=== PATIENT | male | born 1970 | race Two or more races ===

== ENCOUNTER 2018-08-24 00:21 | Emergency (ER) | payer SELFPAY ==
[~2018-08-24] VITALS: Ht 172.7 cm; Wt 68.9 kg
--- NOTE | 2018-08-24 00:40 | NUR ---
BIB SELF. AAOX4. NO RESP DISTRESS NOTED, BREATHING EVEN AND UNLABORED. MOBILE WITH THE AIDE OF A WHEELCHAIR. C/O L FOOT PAIN THAT IS WORST TODAY. PT REPORTS HAVING DM. HE REPORTS HAVING SURGERY DONE ON HOS L FOOT WHICH BY THE LLO IS DEBRIDEMENT. WOUND NOTED ON THE PLANTAR ASPECT OF THE FOOT WITH SLOUGH. NO FOUL ORDER NOTED. L LOWER LEG WAS ALSO NOTED SWOLLEN. PT REPORTS PAIN AT 8/10. TO ER BED 11. MD AT BEDSIDE. ORDERS RECEIVED
[2018-08-24] MEDS ORDERED: ONDANSETRON HCL/PF 4 MG/2 ML VIAL ONE (00:41)
[2018-08-24] MEDS ORDERED: MORPHINE SULFATE INJ 4 MG/ML DISP.SYRIN ONE (00:41)
[2018-08-24 00:56] LABS: BASOPHILS # (AUTO) 0.1 /CMM (0.0-0.2); EOSINOPHILS % (AUTO) 1.6 % (0.0-6.0); HEMATOCRIT 24 % (39-51); HEMOGLOBIN 7.8 g/dL (13.5-17.5); LYMPHOCYTES # (AUTO) 2.1 /CMM (0.8-4.8); MEAN CORPUSCULAR HGB CONC 33 g/dl (31.0-36.0); MEAN CORPUSCULAR VOLUME 92 fL (80-96); MONOCYTES % (AUTO) 8.6 % (2.0-12.0); NEUTROPHILS # (AUTO) 7.7 /CMM (1.8-8.9); NEUTROPHILS % (AUTO) 69.8 % (43.0-81.0); PLATELET COUNT (AUTO) 438 /CMM (150-450); WHITE BLOOD COUNT (AUTO) 11.1 K/uL (4.3-11.0)
[2018-08-24] MEDS ORDERED: MORPHINE SULFATE INJ 2 MG/ML DISP.SYRIN IV ONE (01:00)
[2018-08-24] MEDS ORDERED: ONDANSETRON HCL/PF 4 MG/2 ML VIAL IVP ONE (01:00)
[2018-08-24 01:03] LABS: CALCIUM, SERUM 6.8 mg/dL (8.5-10.1); CREATININE 3.5 mg/dL (0.6-1.3); POTASSIUM 4.3 mmol/L (3.5-5.1)
[2018-08-24] MEDS ORDERED: HYDROMORPHONE 1 MG/1 ML DISP.SYRIN IV ONE (01:30)
[2018-08-24] MEDS ORDERED: HYDROMORPHONE 1 MG/1 ML DISP.SYRIN ONE (01:31)
--- NOTE | 2018-08-24 02:26 | NUR ---
Patient discharged to home in stable condition. Written and verbal after care instructions given. Patient verbalizes understanding of instruction.IV removed. Catheter intact and site benign. Pressure and 4x4 applied to site. No bleeding noted. Pt ambulated using a wheelchair
[2018-08-24 02:32] VITALS: BP 153/89
== END 2018-08-24 02:33 | disposition home or self-care (01) ==
LOC: ER 00:28
DX: E11.621 Type 2 diabetes mellitus with foot ulcer (principal); E11.22 Type 2 diabetes mellitus with diabetic chronic kidney disease; I12.0 Hypertensive chronic kidney disease with stage 5 chronic kidney disease or end stage renal disease; N18.6 End stage renal disease; Z99.2 Dependence on renal dialysis
CPT/HCPCS: 36415; 73630; 80048; 85025; 85730; 93971; 96374; 96375; 99284; A6403; J1170; J2270; J2405